=== PATIENT | male | born 2000 | race Caucasian/White ===

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

== ENCOUNTER 2018-05-29 09:50 | Emergency (ER) | payer SELFPAY ==
[~2018-05-29] VITALS: Ht 180.3 cm; Wt 88.5 kg
[~2018-05-29 09:50] MED LIST changes: +LEVE100020 PO; +LEVE500T56 PO
[2018-05-29 09:55] VITALS: BP 135/67
[2018-05-29] MEDS ORDERED: levETIRAcetam 500 MG TABLET PO ONE (10:00)
[2018-05-29] MEDS ORDERED: LEVE100020 PO (10:04)
--- NOTE | 2018-05-29 10:04 | PHYS DOC ---
Past Medical History Past Medical History: Seizure, Other Additional Past Medical Histor: EPILEPSY Past Surgical History: Other Additional Past Surgical Histo: EYE SURGERY Alcohol Use: Rarely Drug Use: None Adult General Chief Complaint Chief Complaint: MEDICATION REFILL HPI HPI Patient is a 18-year-old male who presents to the emergency department for evaluation. He states he has a history of epilepsy, and ran out of his Keppra, which he had been taking 1500 mg twice daily. He states that he had been seeing Dr. Ward, but she is not able to see him anymore until he gets insurance, and he states his insurance is currently pending. He has no complaints at this time. He denies any headache, vision changes, numbness, weakness. He has not had a recent seizure. He has been out of his medication for about a week. He has no other complaints. There are no alleviating or exacerbating factors to his condition. Review of Systems Review of Systems Constitutional: Denies fever or chills [] Eyes: Denies change in visual acuity, redness, or eye pain [] HENT: Denies nasal congestion or sore throat [] Respiratory: Denies cough or shortness of breath [] Cardiovascular: The patient denies any shortness of breath, chest pain, palpitations, or orthopnea [] GI: Denies abdominal pain, nausea, vomiting, bloody stools or diarrhea [] Neurologic: Denies headache, focal weakness or sensory changes [] Endocrine: Denies polyuria or polydipsia [] Allergies Allergies Allergies Coded Allergies Type Severity Reaction Last Updated Verified No Known Drug Allergies 09/12/13 No Physical Exam Physical Exam PHYSICAL EXAM: CONSTITUTIONAL: Well developed, well nourished HEAD: normocephalic, atraumatic EENT: PERRL, EOMI. Conjunctivae normal color, sclerae non-icteric; moist mucous membranes. NECK: Supple, non-tender; no meningismus. LUNGS: Lungs CTA, breathing even and unlabored. Normal air movement. HEART: Regular rate and rhythm, no murmur CHEST: No deformity; non-tender ABDOMEN: The abdomen is soft, and non-tender, no masses or bruits. EXTREM: Normal ROM; no deformity, no calf tenderness. Normal pulses palpable in all extremities. There is no pedal edema. SKIN: No rash; no diaphoresis NEURO: Alert; normal speech and cognition; CN's grossly intact; strength grossly intact without focal deficit. BACK: No CVA TTP. EKG EKG [] Radiology/Procedures Radiology/Procedures [] Course & Med Decision Making Course & Med Decision Making I discussed the importance of not running out of the patient's seizure medication before he seeks a refill, the importance of close follow-up, and return precautions. Dragon Disclaimer Dragon Disclaimer This electronic medical record was generated, in whole or in part, using a voice recognition dictation system. Departure Departure Impression: Primary Impression: Epilepsy Disposition: 01 HOME, SELF-CARE Condition: STABLE Referrals: MARTELL WARD MD Patient Instructions: Epilepsy Scripts Levetiracetam (KEPPRA) 1,000 Mg Tablet 1.5 TAB PO BID, #90 TAB 1 Refill Prov: BRIDGER ATKINS MD 05/29/18 BRIDGER ATKINS MD May 29, 2018 10:04
== END 2018-05-29 10:23 | disposition home or self-care (01) ==
LOC: ER 09:50
DX: G40.909 Epilepsy, unspecified, not intractable, without status epilepticus (principal)
CPT/HCPCS: 99283

== ENCOUNTER 2018-09-13 10:32 | Emergency (ER) | payer SELFPAY ==
[~2018-09-13] VITALS: Ht 180.3 cm; Wt 84.5 kg
[2018-09-13 11:04] VITALS: BP 148/62
[2018-09-13] MEDS ORDERED: LEVE100020 PO (11:13)
--- NOTE | 2018-09-13 11:13 | PHYS DOC ---
Past Medical History Past Medical History: Seizure, Other Additional Past Medical Histor: EPILEPSY Past Surgical History: Other Additional Past Surgical Histo: EYE SURGERY Alcohol Use: Rarely Drug Use: None Adult General Chief Complaint Chief Complaint: MEDICATION REFILL HPI HPI Patient is a 18 year old male with history of seizures who presents today requesting a refill for his Keppra. He ran out today. He is not able to see the neurologist because he does not have insurance and his neurologist wanted $500 upfront to be seen. He states he is not able to qualify for any Medicaid or Medicare either. Review of Systems Review of Systems Constitutional: Denies fever or chills [] Eyes: Denies change in visual acuity, redness, or eye pain [] HENT: Denies nasal congestion or sore throat [] Respiratory: Denies cough or shortness of breath [] Cardiovascular: No additional information not addressed in HPI [] GI: Denies abdominal pain, nausea, vomiting, bloody stools or diarrhea [] : Denies dysuria or hematuria [] Musculoskeletal: Denies back pain or joint pain [] Integument: Denies rash or skin lesions [] Neurologic: Visit for medication refill. Denies headache, focal weakness or sensory changes [] All other systems were reviewed and found to be within normal limits, except as documented in this note. Allergies Allergies Allergies Coded Allergies Type Severity Reaction Last Updated Verified No Known Drug Allergies 05/29/18 No Physical Exam Physical Exam Constitutional: Well developed, well nourished, no acute distress, non-toxic appearance. [] HENT: Normocephalic, atraumatic, bilateral external ears normal, oropharynx moist, no oral exudates, nose normal. [] Eyes: PERRLA, EOMI, conjunctiva normal, no discharge. [] Neck: Normal range of motion, no tenderness, supple, no stridor. [] Cardiovascular:Heart rate regular rhythm, no murmur [] Lungs & Thorax: Bilateral breath sounds clear to auscultation [] Abdomen: Bowel sounds normal, soft, no tenderness, no masses, no pulsatile masses. [] Skin: Warm, dry, no erythema, no rash. [] Back: No tenderness, no CVA tenderness. [] Extremities: No tenderness, no cyanosis, no clubbing, ROM intact, no edema. [] Neurologic: Alert and oriented X 3, normal motor function, normal sensory function, no focal deficits noted. Cranial nerves II through XII intact. Psychologic: Affect normal, judgement normal, mood normal. [] EKG EKG [] Radiology/Procedures Radiology/Procedures [] Course & Med Decision Making Course & Med Decision Making Pertinent Labs and Imaging studies reviewed. (See chart for details) This is a 18-year-old male patient presenting to the ED today requesting a refill for Keppra for his seizures. He has no insurance and not able to follow- up with the neurologist, see history of present illness. Refill was given to patient. Patient has not other complaints. Dragon Disclaimer Dragon Disclaimer This electronic medical record was generated, in whole or in part, using a voice recognition dictation system. Departure Departure Impression: Primary Impression: Medication refill Disposition: 01 HOME, SELF-CARE Condition: STABLE Referrals: NO PCP (PCP) MARTELL MIRELES MD follow up in 2 week Patient Instructions: Medication Refill, Emergency Department, Seizure, Adult Additional Instructions: We refilled your prescription for Keppra. Follow-up with your own doctor. Scripts Levetiracetam (KEPPRA) 1,000 Mg Tablet 1.5 TAB PO BID, #270 TAB 1 Refill Prov: OSMAN MORALES APRN 09/13/18 OSMAN MORALES APRN Sep 13, 2018 11:13
== END 2018-09-13 11:20 | disposition home or self-care (01) ==
LOC: ER 10:32
DX: G40.909 Epilepsy, unspecified, not intractable, without status epilepticus (principal); Z76.0 Encounter for issue of repeat prescription
CPT/HCPCS: 99283

== ENCOUNTER 2018-10-20 11:09 | Emergency (ER) | payer SELFPAY ==
[~2018-10-20] VITALS: Ht 180.3 cm; Wt 81.6 kg
[2018-10-20] MEDS ORDERED: AMOXICILLIN 250 MG CAPSULE. PO ONE (11:45)
[2018-10-20] MEDS ORDERED: IV NORMAL SALINE 1000ML BAG 1,000 ML IV ONE (11:45)
[2018-10-20] MEDS: MORPHINE SULFATE 2 MG/ML VIAL. IV ONE ×2 (11:45→12:12)
[2018-10-20 12:21] LABS: BASO % 1 % (0-3); EOS # 0.2 x10^3/uL (0.0-0.7); EOS % 3 % (0-3); HEMATOCRIT 50.3 % (39.0-53.0); HEMOGLOBIN 16.7 g/dL (13.0-17.5); LYMPH # 1.9 x10^3/uL (1.0-4.8); LYMPH % 40 % (24-48); MEAN CORPUSCULAR HEMOGLOBIN 32 pg (25-35); MEAN CORPUSCULAR HGB CONC 33 g/dL (31-37); MEAN CORPUSCULAR VOLUME 97 fL (79-100); MONO # 0.4 x10^3/uL (0.0-1.1); MONO % 8 % (0-9); NEUT # 2.3 x10^3uL (1.8-7.7); NEUT % 49 % (31-73); PLATELET COUNT 155 x10^3/uL (140-400); RED BLOOD COUNT 5.22 x10^6/uL (4.30-5.70); RED CELL DISTRIBUTION WIDTH 13.1 % (11.5-14.5); WHITE BLOOD COUNT 4.7 x10^3/uL (4.0-11.0)
[2018-10-20 12:29] LABS: CALCIUM 9.1 mg/dL (8.5-10.1); CREATININE 1.1 mg/dL (0.7-1.3); GFR 85.3; POTASSIUM 3.9 mmol/L (3.5-5.1)
[2018-10-20 12:44] LABS: ALBUMIN 3.9 g/dL (3.4-5.0); ALBUMIN/GLOBULIN RATIO 1.2 (1.0-1.7); TOTAL BILIRUBIN 0.9 mg/dL (0.2-1.0); TOTAL PROTEIN 7.2 g/dL (6.4-8.2)
[2018-10-20 13:00] VITALS: BP 91/46
[2018-10-20] MEDS ORDERED: AMOX500T PO (13:16)
[2018-10-20] MEDS ORDERED: DICL50TA4 PO (13:16)
--- NOTE | 2018-10-20 13:17 | PHYS DOC ---
Past Medical History Past Medical History: CVA, Seizure, Other Additional Past Medical Histor: EPILEPSY Past Surgical History: Other Additional Past Surgical Histo: EYE SURGERY Additional Information: 0.5 PPD Alcohol Use: Occasionally Drug Use: None Adult General Chief Complaint Chief Complaint: SEIZURE [facility] HPI Patient is a 18 year old male with history of seizures on Keppra who presents to the ED today stating he believes he had a seizure this morning. Patient states he woke up and felt off balance. He states he only feels this way whenever he had a seizure. He states most of his seizures usually occur in his sleep. This was unwitnessed seizure. Patient has no post ictal symptoms. He states he does not follow-up with a neurologist because they asked him to be $500 upfront which he does not have. Patient is also complaining of left upper gum dental pain that has been going on for one week. He states he is not able to see a dentist because he does not have insurance. He rates his pain as moderate and described as throbbing. He states he has not taken anything for his pain. Denies any fever or trismus. Review of Systems Review of Systems Constitutional: Denies fever or chills [] Eyes: Denies change in visual acuity, redness, or eye pain [] HENT: Reports dental pain. Denies nasal congestion or sore throat [] Respiratory: Denies cough or shortness of breath [] Cardiovascular: No additional information not addressed in HPI [] GI: Denies abdominal pain, nausea, vomiting, bloody stools or diarrhea [] : Denies dysuria or hematuria [] Musculoskeletal: Denies back pain or joint pain [] Integument: Denies rash or skin lesions [] Neurologic: Reports unwitnessed seizure. Denies headache, focal weakness or sensory changes [] All other systems were reviewed and found to be within normal limits, except as documented in this note. Current Medications Current Medications Current Medications Medications (Trade) Dose Ordered Sig/Callum Start Time Stop Time Status Last Admin Dose Admin Amoxicillin (Amoxil) 1,000 mg 1X ONCE 10/20/18 11:45 10/20/18 11:49 DC 10/20/18 12:11 1,000 MG Morphine Sulfate (Morphine Sulfate) 2 mg 1X ONCE 10/20/18 11:45 10/20/18 11:49 DC Sodium Chloride 1,000 ml @ 1,000 mls/hr 1X ONCE 10/20/18 11:45 10/20/18 12:44 DC 10/20/18 12:11 1,000 MLS/HR Allergies Allergies Allergies Coded Allergies Type Severity Reaction Last Updated Verified No Known Drug Allergies 05/29/18 No Physical Exam Physical Exam Constitutional: Well developed, well nourished, no acute distress, non-toxic appearance. [] HENT: Normocephalic, atraumatic, bilateral external ears normal, oropharynx moist, no oral exudates, nose normal. [] Approximately tooth #16 is a broken. Scattered dental caries noted. No gum erythema. No abscess. Eyes: PERRLA, EOMI, conjunctiva normal, no discharge. [] Neck: Normal range of motion, no tenderness, supple, no stridor. [] Cardiovascular:Heart rate regular rhythm, no murmur [] Lungs & Thorax: Bilateral breath sounds clear to auscultation [] Abdomen: Bowel sounds normal, soft, no tenderness, no masses, no pulsatile masses. [] Skin: Warm, dry, no erythema, no rash. [] Back: No tenderness, no CVA tenderness. [] Extremities: No tenderness, no cyanosis, no clubbing, ROM intact, no edema. [] Neurologic: Alert and oriented X 3, normal motor function, normal sensory function, no focal deficits noted. [Cranial nerves II through XII intact Psychologic: Affect normal, judgement normal, mood normal. [] Current Patient Data Vital Signs Vital Signs Date Time Temp Pulse Resp B/P (MAP) Pulse Ox O2 Delivery O2 Flow Rate FiO2 10/20/18 11:21 98.9 99 20 114/58 (76) 96 Room Air 98.9 Lab Values Laboratory Tests Test 10/20/18 12:13 White Blood Count 4.7 x10^3/uL (4.0-11.0) Red Blood Count 5.22 x10^6/uL (4.30-5.70) Hemoglobin 16.7 g/dL (13.0-17.5) Hematocrit 50.3 % (39.0-53.0) Mean Corpuscular Volume 97 fL (79-100) Mean Corpuscular Hemoglobin 32 pg (25-35) Mean Corpuscular Hemoglobin Concent 33 g/dL (31-37) Red Cell Distribution Width 13.1 % (11.5-14.5) Platelet Count 155 x10^3/uL (140-400) Neutrophils (%) (Auto) 49 % (31-73) Lymphocytes (%) (Auto) 40 % (24-48) Monocytes (%) (Auto) 8 % (0-9) Eosinophils (%) (Auto) 3 % (0-3) Basophils (%) (Auto) 1 % (0-3) Neutrophils # (Auto) 2.3 x10^3uL (1.8-7.7) Lymphocytes # (Auto) 1.9 x10^3/uL (1.0-4.8) Monocytes # (Auto) 0.4 x10^3/uL (0.0-1.1) Eosinophils # (Auto) 0.2 x10^3/uL (0.0-0.7) Basophils # (Auto) 0.0 x10^3/uL (0.0-0.2) Sodium Level 142 mmol/L (136-145) Potassium Level 3.9 mmol/L (3.5-5.1) Chloride Level 105 mmol/L (98-107) Carbon Dioxide Level 30 mmol/L (21-32) Anion Gap 7 (6-14) Blood Urea Nitrogen 17 mg/dL (8-26) Creatinine 1.1 mg/dL (0.7-1.3) Estimated GFR (Cockcroft-Gault) 85.3 BUN/Creatinine Ratio 15 (6-20) Glucose Level 106 mg/dL (70-99) H Lactic Acid Level 0.6 mmol/L (0.4-2.0) Calcium Level 9.1 mg/dL (8.5-10.1) Total Bilirubin 0.9 mg/dL (0.2-1.0) Aspartate Amino Transferase (AST) 19 U/L (15-37) Alanine Aminotransferase (ALT) 37 U/L (16-63) Alkaline Phosphatase 86 U/L (46-116) Total Protein 7.2 g/dL (6.4-8.2) Albumin 3.9 g/dL (3.4-5.0) Albumin/Globulin Ratio 1.2 (1.0-1.7) Ethyl Alcohol Level < 10 mg/dL (0-10) Laboratory Tests 10/20/18 12:13 Laboratory Tests 10/20/18 12:13 EKG EKG [] Radiology/Procedures Radiology/Procedures [] Course & Med Decision Making Course & Med Decision Making Pertinent Labs and Imaging studies reviewed. (See chart for details) This is a 18-year-old male patient presented to the ED today stating he had a seizure this morning this was unwitnessed seizure, see history of present illness. He has history of seizures. Patient is in no distress. Labs are negative including lactic of 0.6. i doubt he had a seizure. Patient is also complaining of dental pain. He has dental caries. Was encouraged to consider following up with the dental clinic. Discharged on amoxicillin and diclofenac for pain. Encourage also follow-up with the local clinics for seizure management. He states he uses the ED for his seizure medications. Dragon Disclaimer Dragon Disclaimer This electronic medical record was generated, in whole or in part, using a voice recognition dictation system. Departure Departure Impression: Primary Impression: Seizure Additional Impressions: Dentalgia Infected dental carries Disposition: HOME, SELF-CARE Condition: STABLE Referrals: NO PCP (PCP) follow up with your dentist and doctor from the clinic list provided Patient Instructions: Dental Caries, Seizure, Adult Additional Instructions: You were evaluated in the emergency room for seizures. Continue taking your Keppra. Consider establishing care with one of the primary care doctors from the local clinics provided. Also consider following up with your dentist from the clinic list provided. Scripts Amoxicillin (AMOXICILLIN) 500 Mg Tablet 1 TAB PO BID, #20 TAB Prov: OSMAN MORALES APRN 10/20/18 Diclofenac Sodium (DICLOFENAC SODIUM) 50 Mg Tablet. 1 TAB PO BID, #20 TAB 0 Refills Prov: OSMAN MORALES APRN 10/20/18 Problem Qualifiers OSMAN MORALES APRN October 20, 2018 13:17
[2018-10-20 13:21] LABS: BARBITURATES NEG (NEG); BENZODIAZEPINES NEG (NEG); CANNABINOIDS NEG (NEG); COCAINE NEG (NEG); METHADONE NEG (NEG); OPIATES NEG (NEG); PHENCYCLIDINE NEG (NEG)
[2018-10-20 13:22] LABS: BILIRUBIN,URINE NEGATIVE (NEG); CLARITY,URINE CLEAR; COLOR,URINE YELLOW; NITRITE,URINE NEGATIVE (NEG); PH,URINE 6.5; PROTEIN,URINE NEGATIVE (NEG-TRACE)
[2018-10-20 13:26] LABS: AMPHETAMINE/METHAMPHETAMINE NEG (NEG)
[2018-10-20 13:27] LABS: BACTERIA,URINE 0 /HPF (0-FEW); RBC,URINE 0 /HPF (0-2); SQUAMOUS EPITHELIAL CELL,UR OCC /LPF; WBC,URINE 0 /HPF (0-4)
== END 2018-10-20 13:31 | disposition home or self-care (01) ==
LOC: ER 11:09
DX: R56.9 Unspecified convulsions (principal); K02.9 Dental caries, unspecified; F17.200 Nicotine dependence, unspecified, uncomplicated; Z86.73 Personal history of transient ischemic attack (TIA), and cerebral infarction without residual deficits
CPT/HCPCS: 36415; 80053; 80177; 80307; 81001; 83605; 85025; 99284; G0480; J7030; J2270

== ENCOUNTER 2018-11-14 11:55 | Emergency (ER) | payer SELFPAY ==
[~2018-11-14] VITALS: Ht 175.3 cm; Wt 81.6 kg
[~2018-11-14 11:55] MED LIST changes: +AMOX500T PO; +DICL50TA4 PO
[2018-11-14 12:04] VITALS: BP 131/66
[2018-11-14 12:24] LABS: BASO % 1 % (0-3); EOS # 0.1 x10^3/uL (0.0-0.7); EOS % 3 % (0-3); HEMATOCRIT 49.5 % (39.0-53.0); HEMOGLOBIN 16.8 g/dL (13.0-17.5); LYMPH # 1.5 x10^3/uL (1.0-4.8); LYMPH % 28 % (24-48); MEAN CORPUSCULAR HEMOGLOBIN 33 pg (25-35); MEAN CORPUSCULAR HGB CONC 34 g/dL (31-37); MEAN CORPUSCULAR VOLUME 97 fL (79-100); MONO # 0.3 x10^3/uL (0.0-1.1); MONO % 5 % (0-9); NEUT # 3.6 x10^3uL (1.8-7.7); NEUT % 64 % (31-73); PLATELET COUNT 193 x10^3/uL (140-400); RED BLOOD COUNT 5.08 x10^6/uL (4.30-5.70); RED CELL DISTRIBUTION WIDTH 12.9 % (11.5-14.5); WHITE BLOOD COUNT 5.6 x10^3/uL (4.0-11.0)
[2018-11-14] MEDS ORDERED: IV NORMAL SALINE 1000ML BAG 1,000 ML IV ONE (12:30)
[2018-11-14] MEDS ORDERED: levETIRAcetam 1,000 MG in IV DEXTROSE 5% 100ML 100 ML IV ONE (12:30)
[2018-11-14 12:42] LABS: CALCIUM 9.2 mg/dL (8.5-10.1); CREATININE 1.1 mg/dL (0.7-1.3); GFR 85.3; POTASSIUM 4.3 mmol/L (3.5-5.1)
[2018-11-14 12:48] LABS: ALBUMIN 3.6 g/dL (3.4-5.0); ALBUMIN/GLOBULIN RATIO 1.1 (1.0-1.7); TOTAL BILIRUBIN 0.6 mg/dL (0.2-1.0); TOTAL PROTEIN 6.9 g/dL (6.4-8.2)
--- NOTE | 2018-11-14 13:40 | PHYS DOC ---
Past Medical History Past Medical History: CVA, Seizure, Other Additional Past Medical Histor: EPILEPSY Past Surgical History: Other Additional Past Surgical Histo: EYE SURGERY Alcohol Use: Occasionally Drug Use: None Adult General Chief Complaint Chief Complaint: SEIZURE HPI HPI Patient is a 18 year old male with history of seizure brought in by EMS because of seizure. Patient ran out of his seizure medication Keppra for the last 3 days and had 2 episodes of witnessed seizure today as a grand mal seizure with urinary incontinence without fall or head injury that last about 2-3 minutes with biting his tongue. Patient was in postictal condition and unable to give history. Review of Systems Review of Systems Unable to obtain because of postictal condition Current Medications Current Medications Current Medications Medications (Trade) Dose Ordered Sig/Callum Start Time Stop Time Status Last Admin Dose Admin Levetiracetam 1000 mg/Dextrose 110 ml @ 440 mls/hr 1X ONCE 11/14/18 12:30 11/14/18 12:44 DC 11/14/18 12:36 440 MLS/HR Sodium Chloride 1,000 ml @ 1,000 mls/hr 1X ONCE 11/14/18 12:30 11/14/18 13:53 DC 11/14/18 12:24 1,000 MLS/HR Allergies Allergies Allergies Coded Allergies Type Severity Reaction Last Updated Verified No Known Drug Allergies 05/29/18 No Physical Exam Physical Exam Constitutional: Well developed, well nourished, no acute distress, non-toxic appearance, sleeping but responding to questions. [] HENT: Normocephalic, areas of tongue bite without active bleeding Eyes: PERRLA, EOMI, conjunctiva normal, no discharge. [] Neck: Normal range of motion, no tenderness, supple, no stridor. [] Cardiovascular:Heart rate regular rhythm, no murmur [] Lungs & Thorax: Bilateral breath sounds clear to auscultation [] Abdomen: Bowel sounds normal, soft, no tenderness, no masses, no pulsatile masses. [] Skin: Warm, dry, no erythema, no rash. [] Back: No tenderness, no CVA tenderness. [] Extremities: No tenderness, no cyanosis, no clubbing, ROM intact, no edema. [] Neurologic: Alert , somnolent normal motor function, normal sensory function, no focal deficits noted. [] Psychologic: Unable to evaluate Current Patient Data Vital Signs Vital Signs Date Time Temp Pulse Resp B/P (MAP) Pulse Ox O2 Delivery O2 Flow Rate FiO2 11/14/18 12:04 98.0 84 18 131/66 (87) 99 Room Air 98.0 Lab Values Laboratory Tests Test 11/14/18 12:00 11/14/18 14:01 White Blood Count 5.6 x10^3/uL (4.0-11.0) Red Blood Count 5.08 x10^6/uL (4.30-5.70) Hemoglobin 16.8 g/dL (13.0-17.5) Hematocrit 49.5 % (39.0-53.0) Mean Corpuscular Volume 97 fL (79-100) Mean Corpuscular Hemoglobin 33 pg (25-35) Mean Corpuscular Hemoglobin Concent 34 g/dL (31-37) Red Cell Distribution Width 12.9 % (11.5-14.5) Platelet Count 193 x10^3/uL (140-400) Neutrophils (%) (Auto) 64 % (31-73) Lymphocytes (%) (Auto) 28 % (24-48) Monocytes (%) (Auto) 5 % (0-9) Eosinophils (%) (Auto) 3 % (0-3) Basophils (%) (Auto) 1 % (0-3) Neutrophils # (Auto) 3.6 x10^3uL (1.8-7.7) Lymphocytes # (Auto) 1.5 x10^3/uL (1.0-4.8) Monocytes # (Auto) 0.3 x10^3/uL (0.0-1.1) Eosinophils # (Auto) 0.1 x10^3/uL (0.0-0.7) Basophils # (Auto) 0.0 x10^3/uL (0.0-0.2) Sodium Level 140 mmol/L (136-145) Potassium Level 4.3 mmol/L (3.5-5.1) Chloride Level 104 mmol/L (98-107) Carbon Dioxide Level 28 mmol/L (21-32) Anion Gap 8 (6-14) Blood Urea Nitrogen 13 mg/dL (8-26) Creatinine 1.1 mg/dL (0.7-1.3) Estimated GFR (Cockcroft-Gault) 85.3 BUN/Creatinine Ratio 12 (6-20) Glucose Level 125 mg/dL (70-99) H Calcium Level 9.2 mg/dL (8.5-10.1) Total Bilirubin 0.6 mg/dL (0.2-1.0) Aspartate Amino Transferase (AST) 20 U/L (15-37) Alanine Aminotransferase (ALT) 43 U/L (16-63) Alkaline Phosphatase 101 U/L (46-116) Total Protein 6.9 g/dL (6.4-8.2) Albumin 3.6 g/dL (3.4-5.0) Albumin/Globulin Ratio 1.1 (1.0-1.7) Ethyl Alcohol Level < 10 mg/dL (0-10) Urine Opiates Screen Neg (NEG) Urine Methadone Screen Neg (NEG) Urine Barbiturates Neg (NEG) Urine Phencyclidine Screen Neg (NEG) Urine Amphetamine/Methamphetamine Neg (NEG) Urine Benzodiazepines Screen Neg (NEG) Urine Cocaine Screen Neg (NEG) Urine Cannabinoids Screen Neg (NEG) Urine Ethyl Alcohol Neg (NEG) Laboratory Tests 11/14/18 12:00 Laboratory Tests 11/14/18 12:00 EKG EKG EKG interpreted by me. EKG at 1154 showed normal sinus rhythm at rate of 72, no acute ST-T wave abnormalities. Radiology/Procedures Radiology/Procedures [] Course & Med Decision Making Course & Med Decision Making Pertinent Labs reviewed. (See chart for details) Evaluation of patient in ER showed 18-year-old male patient with history of seizure brought in by EMS because of 2 episodes of seizure because of not taking Keppra for the last 3 days because of financial problem. Patient treated with IV Keppra and IV fluid and felt better. Patient ambulated without problem. Patient supposed take 1500 mg bid but since last March he takes 1500 mg at bedtime without having any seizure until today. Patient was advised to take Keppra 1000 mg twice a day and follow up with his neurologist. Dragon Disclaimer Dragon Disclaimer This electronic medical record was generated, in whole or in part, using a voice recognition dictation system. Departure Departure Impression: Primary Impression: Seizure Additional Impressions: Noncompliance with medication regimen Tobacco abuse Disposition: HOME, SELF-CARE (@1346) Condition: IMPROVED Referrals: NO PCP (PCP) MARTELL MIRELES MD Patient Instructions: Seizure, Adult Additional Instructions: Drink plenty of liquids Follow-up with your primary care physician in 3-5 days Return to ER if not getting better Continue home seizure medication Scripts Levetiracetam (KEPPRA) 1,000 Mg Tablet 1 TAB PO BID, #60 TAB 0 Refills Prov: MAURO MCLAUGHLIN MD 11/14/18 Problem Qualifiers MAURO MCLAUGHLIN MD Nov 14, 2018 13:40
[2018-11-14] MEDS ORDERED: LEVE100020 PO (13:48)
--- NOTE | 2018-11-14 14:12 | EKG ---
[facility] [address] [place] [address] Test Date: 2018-11-14 Test Time: 11:54:34 Pat Name: LISBET LARA Department: Room: Gender: M Compliance Officer: : 2000 Requested By: MAURO MCLAUGHLIN Order Number: [id number] Reading MD: Measurements Intervals [place] Rate: 72 P: 44 SC: 158 QRS: 14 QRSD: 90 T: 47 QT: 344 QTc: 378 Interpretive Statements SINUS RHYTHM NON SPECIFIC ST-T ABNORMALITY (ELEVATION) OTHERWISE NORMAL ECG No previous ECG available for comparison
[2018-11-14 14:18] LABS: AMPHETAMINE/METHAMPHETAMINE NEG (NEG); BARBITURATES NEG (NEG); BENZODIAZEPINES NEG (NEG); CANNABINOIDS NEG (NEG); COCAINE NEG (NEG); METHADONE NEG (NEG); OPIATES NEG (NEG); PHENCYCLIDINE NEG (NEG)
== END 2018-11-14 14:18 | disposition home or self-care (01) ==
LOC: ER 11:55
DX: G40.409 Other generalized epilepsy and epileptic syndromes, not intractable, without status epilepticus (principal); R32 Unspecified urinary incontinence; Z91.14 Patient's other noncompliance with medication regimen; Z72.0 Tobacco use; Z86.73 Personal history of transient ischemic attack (TIA), and cerebral infarction without residual deficits
CPT/HCPCS: 36415; 80053; 80307; 85025; 93005; 96365; 99285; G0480; J1953; J7030

== ENCOUNTER 2019-09-30 10:56 | Emergency (ER) | payer SELFPAY ==
[~2019-09-30] VITALS: Ht 182.9 cm; Wt 84.0 kg
[2019-09-30] MEDS ORDERED: LEVE100020 PO (11:57)
--- NOTE | 2019-09-30 11:57 | PHYS DOC ---
Past Medical History Past Medical History: CVA, Seizure, Other Additional Past Medical Histor: EPILEPSY Past Surgical History: Other Additional Past Surgical Histo: EYE SURGERY Smoking Status: Current Every Day Smoker Alcohol Use: Occasionally Drug Use: None General Adult EDM: Chief Complaint: MEDICATION REFILL HPI: HPI: Patient is a 19-year-old male with a history of seizure disorder who is on Keppra. He took his last dose of Keppra last night and is here for medication refill. He states he is done very well on 1500 mg of Keppra daily. He states he cannot follow with a neurologist because he does not have insurance. He has had no recent surgeries. [] Review of Systems: Review of Systems: Constitutional: Denies fever or chills. [] Eyes: Denies change in visual acuity. [] HENT: Denies nasal congestion or sore throat. [] Respiratory: Denies cough or shortness of breath. [] Cardiovascular: Denies chest pain or edema. [] GI: Denies abdominal pain, nausea, vomiting, bloody stools or diarrhea. [] : Denies dysuria. [] Musculoskeletal: Denies back pain or joint pain. [] Integument: Denies rash. [] Neurologic: Denies headache, focal weakness or sensory changes. [] Endocrine: Denies polyuria or polydipsia. [] Lymphatic: Denies swollen glands. [] Psychiatric: Reports anxiety. [] Heart Score: Risk Factors: Risk Factors: DM, Current or recent (<one month) smoker, HTN, HLP, family history of CAD, obesity. Risk Scores: Score 0 - 3: 2.5% MACE over next 6 weeks - Discharge Home Score 4 - 6: 20.3% MACE over next 6 weeks - Admit for Clinical Observation Score 7 - 10: 72.7% MACE over next 6 weeks - Early Invasive Strategies Allergies: Allergies: Allergies Coded Allergies Type Severity Reaction Last Updated Verified No Known Drug Allergies 05/29/18 No Physical Exam: PE: Constitutional: Well developed, well nourished, no acute distress, non-toxic appearance. [] HENT: Normocephalic, atraumatic, bilateral external ears normal, oropharynx moist, no oral exudates, nose normal. [] Eyes: PERRLA, EOMI, conjunctiva normal, no discharge. [] Neck: Normal range of motion, no tenderness, supple, no stridor. [] Cardiovascular:Heart rate regular rhythm, no murmur [] Lungs & Thorax: Bilateral breath sounds clear to auscultation [] Abdomen: Bowel sounds normal, soft, no tenderness, no masses, no pulsatile masses. [] Skin: Warm, dry, no erythema, no rash. [] Back: No tenderness, no CVA tenderness. [] Extremities: No tenderness, no cyanosis, no clubbing, ROM intact, no edema. [] Neurologic: Alert and oriented X 3, normal motor function, normal sensory function, no focal deficits noted. [] Psychologic: Anxious l. [] EKG: EKG: [] Radiology/Procedures: Radiology/Procedures: [] Course & Med Decision Making: Course & Med Decision Making Pertinent Labs and Imaging studies reviewed. (See chart for details) [] Dragon Disclaimer: Dragon Disclaimer: This electronic medical record was generated, in whole or in part, using a voice recognition dictation system. Departure Departure Impression: Primary Impression: Medication refill Disposition: HOME, SELF-CARE Condition: STABLE Referrals: NO PCP (PCP) Patient Instructions: Seizure, Adult Scripts Levetiracetam (KEPPRA) 1,000 Mg Tablet 1.5 TAB PO BID for 90 Days, #270 TAB 0 Refills Prov: PEDRITO RIVERA DO 09/30/19 PEDRITO RIVERA DO Sep 30, 2019 11:57
[2019-09-30 11:58] VITALS: BP 123/65
== END 2019-09-30 12:07 | disposition home or self-care (01) ==
LOC: ER 10:56
DX: G40.909 Epilepsy, unspecified, not intractable, without status epilepticus (principal); F17.200 Nicotine dependence, unspecified, uncomplicated; Z98.890 Other specified postprocedural states; Z76.0 Encounter for issue of repeat prescription; Z86.73 Personal history of transient ischemic attack (TIA), and cerebral infarction without residual deficits
CPT/HCPCS: 99281; 99283

== ENCOUNTER 2019-11-02 18:56 | Emergency (ER) | payer SELFPAY | END 2019-11-02 19:04 | disposition left against medical advice (07) | LOC: ER 18:56 | DX: Z76.0 Encounter for issue of repeat prescription (principal); Z53.21 Procedure and treatment not carried out due to patient leaving prior to being seen by health care provider ==

== ENCOUNTER 2019-11-04 12:57 | Emergency (ER) | payer SELFPAY ==
[~2019-11-04] VITALS: Ht 180.3 cm; Wt 90.0 kg
[2019-11-04 13:18] VITALS: BP 154/92
[2019-11-04] MEDS ORDERED: LEVE100020 PO (13:32)
--- NOTE | 2019-11-04 13:37 | PHYS DOC ---
Past Medical History Past Medical History: CVA, Seizure, Other Additional Past Medical Histor: EPILEPSY (VOLODYMYR VENCES APRN) Past Surgical History: Other Additional Past Surgical Histo: EYE SURGERY (VOLODYMYR VENCES APRN) Smoking Status: Current Every Day Smoker Alcohol Use: Occasionally Drug Use: None (VOLODYMYR VENCES APRN) General Adult EDM: Chief Complaint: MEDICATION REFILL HPI: HPI: Patient is a 19 year old male who presents with needing a refill for his Keppra. He takes 1500 mg p.o. twice daily. He is a history of CVA and epilepsy. Patient still does not have a primary care doctor. Patient is here frequently for his medication refills. Patient is educated that he needs a primary care provider. (VOLODYMYR VENCES APRN) Review of Systems: Review of Systems: Constitutional: Denies fever or chills. Medication refill [] (VOLODYMYR VENCES APRN) Heart Score: Risk Factors: Risk Factors: DM, Current or recent (<one month) smoker, HTN, HLP, family history of CAD, obesity. Risk Scores: Score 0 - 3: 2.5% MACE over next 6 weeks - Discharge Home Score 4 - 6: 20.3% MACE over next 6 weeks - Admit for Clinical Observation Score 7 - 10: 72.7% MACE over next 6 weeks - Early Invasive Strategies (VOLODYMYR EVNCES APRN) Allergies: Allergies: Allergies Coded Allergies Type Severity Reaction Last Updated Verified No Known Drug Allergies 05/29/18 No (VOLODYMYR VENCES APRN) Physical Exam: PE: Constitutional: Well developed, well nourished, no acute distress, non-toxic appearance. [] HENT: Normocephalic, atraumatic, bilateral external ears normal, oropharynx moist, no oral exudates, nose normal. [] Eyes: PERRLA, EOMI, conjunctiva normal, no discharge. [] Neck: Normal range of motion, no tenderness, supple, no stridor. [] Cardiovascular:Heart rate regular rhythm, no murmur [] Lungs & Thorax: Bilateral breath sounds clear to auscultation [] Abdomen: Bowel sounds normal, soft, no tenderness, no masses, no pulsatile masses. [] Skin: Warm, dry, no erythema, no rash. [] Back: No tenderness, no CVA tenderness. [] Extremities: No tenderness, no cyanosis, no clubbing, ROM intact, no edema. [] Neurologic: Alert and oriented X 3, normal motor function, normal sensory function, no focal deficits noted. [] Psychologic: Affect normal, judgement normal, mood normal. Normal physical exam [] (VOLODYMYR VENCES APRN) Current Patient Data: Vital Signs: Vital Signs Date Time Temp Pulse Resp B/P (MAP) Pulse Ox O2 Delivery O2 Flow Rate FiO2 11/04/19 13:18 98.2 95 20 154/92 (112) 99 Room Air 98.2 (VOLODYMYR VENCES APRN) EKG: EKG: [] (VOLODYMYR VENCES APRN) Radiology/Procedures: Radiology/Procedures: [] (VOLODYMYR VENCES APRN) Course & Med Decision Making: Course & Med Decision Making Pertinent Labs and Imaging studies reviewed. (See chart for details) Alert and oriented. Speaks in full clear sentences. Patient has no complaints. Patient denies chest pain, seizures, shortness of breath, abdominal pain, nausea, vomiting, diarrhea, headache, dizziness, syncope, focal weakness, visual changes, numbness or tingling. Vital signs within normal limits. [] (VOLODYMYR VENCES APRN) Dragon Disclaimer: Dragon Disclaimer: This electronic medical record was generated, in whole or in part, using a voice recognition dictation system. (VOLODYMYR VENCES APRN) Departure Departure Impression: Primary Impression: Medication refill Disposition: 01 HOME, SELF-CARE Condition: STABLE Referrals: NO PCP (PCP) Patient Instructions: Medication Refill, Emergency Department Additional Instructions: Need to find a primary care physician for your health and medications. Take medications as prescribed. Scripts Levetiracetam (KEPPRA) 1,000 Mg Tablet 1.5 TAB PO BID for 30 Days, #90 TAB 0 Refills Prov: VOLODYMYR VENCES APRN 11/04/19 Attending Signature Attending Signature I have participated in the care of this patient and I have reviewed and agree with all pertinent clinical information above including history, exam, and recommendations. (MESFIN MONTGOMERY DO) VOLODYMYR VENCES APRN November 04, 2019 13:37 MESFIN MONTGOMERY DO November 04, 2019 15:30
== END 2019-11-04 13:48 | disposition home or self-care (01) ==
LOC: ER 12:57
DX: G40.909 Epilepsy, unspecified, not intractable, without status epilepticus (principal); Z86.73 Personal history of transient ischemic attack (TIA), and cerebral infarction without residual deficits; F17.200 Nicotine dependence, unspecified, uncomplicated
CPT/HCPCS: 99281; 99283

== ENCOUNTER 2020-02-17 09:39 | Emergency (ER) | payer SELFPAY ==
[~2020-02-17] VITALS: Ht 180.3 cm; Wt 86.0 kg
[2020-02-17 09:45] VITALS: BP 112/60
[2020-02-17] MEDS ORDERED: LEVE750T23 PO (10:06)
--- NOTE | 2020-02-17 10:06 | PHYS DOC ---
Past Medical History Past Medical History: CVA, Seizure, Other Additional Past Medical Histor: EPILEPSY Past Surgical History: Other Additional Past Surgical Histo: EYE SURGERY Smoking Status: Current Every Day Smoker Alcohol Use: Occasionally Drug Use: None General Adult EDM: Chief Complaint: MEDICATION REFILL HPI: HPI: Patient is a 19 year old male who presents requesting medication refill. He has been out of his keppra for 2 days. States he does not have insurance or a primary physician. Denies any complaints. Review of Systems: Review of Systems: General: Denies fever, chills, sweats, fatigue Eyes: Denies drainage, blurred vision, eye redness HENT: Denies rhinorrhea, sore throat, earache Respiratory: Denies cough, shortness of breath, wheezing Cardiac: Denies edema, palpitations, chest pain GI: Denies abdominal pain, Nausea, vomiting MSK: Denies back pain, neck pain Skin: Denies rash, jaundice Neuro: Denies headache, dizziness Psychiatric: Denies SI/HI Heart Score: Risk Factors: Risk Factors: DM, Current or recent (<one month) smoker, HTN, HLP, family history of CAD, obesity. Risk Scores: Score 0 - 3: 2.5% MACE over next 6 weeks - Discharge Home Score 4 - 6: 20.3% MACE over next 6 weeks - Admit for Clinical Observation Score 7 - 10: 72.7% MACE over next 6 weeks - Early Invasive Strategies Allergies: Allergies: Allergies Coded Allergies Type Severity Reaction Last Updated Verified No Known Drug Allergies 05/29/18 No Physical Exam: PE: General: Awake, alert, NAD. Well Nourished, well hydrated. Cooperative HEENT: Atraumatic, EOMI, PERRL, airway patent, moist oral mucosa Neck: Supple, trachea midline Respiratory: CTA bilaterally, normal effort, no wheezing/crackles CV: RRR, no murmur, cap refill <2 GI: Soft, nondistended, nontender, no masses MSK: No obvious deformities Skin: Warm, dry, intact Neuro: A&O x3, speech NL, sensory and motor grossly intact, no focal deficits Psych: Normal affect, normal mood, not suicidal or homicidal Current Patient Data: Vital Signs: Vital Signs Date Time Temp Pulse Resp B/P (MAP) Pulse Ox O2 Delivery O2 Flow Rate FiO2 02/17/20 09:45 97.6 57 16 112/60 (77) 98 Room Air 97.6 EKG: EKG: [] Radiology/Procedures: Radiology/Procedures: [] Course & Med Decision Making: Course & Med Decision Making Pertinent Labs and Imaging studies reviewed. (See chart for details) Patient presents to the emergency room requesting a medication refill. I have discussed with the patient that the emergency room is not the appropriate place to get medication refills. We discussed that there are multiple clinics in the community that due to free or low income health care. I have given him a list of these to follow-up with. I discussed with him that he needs to follow-up with a primary care doctor for any further refills for his Keppra. I have given him a prescription for Keppra 1 last time from here in the emergency room. Patient's test results and vitals while in the ED were fully reviewed and discussed with the patient. Patient is stable and at this time does not need admission to the hospital. We have discussed strict return precautions and the importance of following up with their Primary Care Physician. Patient stated understanding and was given an opportunity to ask any questions. Patient is in agreement with plan. Masoud Disclaimer: Masoud Disclaimer: This electronic medical record was generated, in whole or in part, using a voice recognition dictation system. Departure Departure Impression: Primary Impression: Medication refill Disposition: HOME, SELF-CARE Condition: STABLE Referrals: NO PCP (PCP) Patient Instructions: Liquid Medication Administration Scripts Levetiracetam (LEVETIRACETAM) 750 Mg Tab.er.24h 2 TAB PO DAILY for 30 Days, #60 TAB 1 Refill Prov: SALOMÓN MORRIS MD 02/17/20 Justicifation of Admission Dx: Justifications for Admission: Justification of Admission Dx: N/A SALOMÓN MORRIS MD Feb 17, 2020 10:06
== END 2020-02-17 10:13 | disposition home or self-care (01) ==
LOC: ER 09:39
DX: R56.9 Unspecified convulsions (principal); F17.200 Nicotine dependence, unspecified, uncomplicated; Z76.0 Encounter for issue of repeat prescription; Z86.73 Personal history of transient ischemic attack (TIA), and cerebral infarction without residual deficits; Z98.890 Other specified postprocedural states
CPT/HCPCS: 99281

== ENCOUNTER 2020-06-30 12:03 | Emergency (ER) | payer OTHER ==
[~2020-06-30] VITALS: Ht 182.9 cm; Wt 88.6 kg
[~2020-06-30 12:03] MED LIST changes: +LEVE750T23 PO
[2020-06-30 12:05] VITALS: BP 123/70
[2020-06-30] MEDS ORDERED: LEVE750T41 PO (12:29)
--- NOTE | 2020-06-30 12:30 | PHYS DOC ---
Past Medical History Past Medical History: CVA, Seizure, Other Additional Past Medical Histor: EPILEPSY Past Surgical History: Other Additional Past Surgical Histo: EYE SURGERY Smoking Status: Current Every Day Smoker Additional Information: 0.5 PPD Alcohol Use: Occasionally Drug Use: None General Adult EDM: Chief Complaint: MEDICATION REFILL HPI: HPI: Patient is a 20 year old male who presents emergency department requesting a refill for his Keppra medication. Patient states he has a seizure history since he was 13 years old, has lost his insurance and is currently trying to get back with medical insurance. Patient states he has been unable to find a primary care provider to help him with his seizure medication. Patient states he has not had a seizure in over a year. Patient has no physical complaints or physical concerns. Review of Systems: Review of Systems: 14 body systems of review of systems have been reviewed. See HPI for pertinent positives and negative responses, otherwise all other systems are negative, nonpertinent or noncontributory. Heart Score: Risk Factors: Risk Factors: DM, Current or recent (<one month) smoker, HTN, HLP, family history of CAD, obesity. Risk Scores: Score 0 - 3: 2.5% MACE over next 6 weeks - Discharge Home Score 4 - 6: 20.3% MACE over next 6 weeks - Admit for Clinical Observation Score 7 - 10: 72.7% MACE over next 6 weeks - Early Invasive Strategies Allergies: Allergies: Allergies Coded Allergies Type Severity Reaction Last Updated Verified No Known Drug Allergies 05/29/18 No Physical Exam: PE: Constitutional: Well developed, well nourished, no acute distress, non-toxic appearance. HENT: Normocephalic, atraumatic, bilateral external ears normal, oropharynx moist, no oral exudates, nose normal. Eyes: PERRLA, EOMI, conjunctiva normal, no discharge. Neck: Normal range of motion, no tenderness, supple, no stridor. Cardiovascular:Heart rate regular rhythm, no murmur Lungs & Thorax: Bilateral breath sounds clear to auscultation Abdomen: Bowel sounds normal, soft, no tenderness, no masses, no pulsatile masses. Skin: Warm, dry, no erythema, no rash. Back: No tenderness, no CVA tenderness. Extremities: No tenderness, no cyanosis, no clubbing, ROM intact, no edema. Neurologic: Alert and oriented X 3, normal motor function, normal sensory function, no focal deficits noted. Psychologic: Affect normal, judgement normal, mood normal. Current Patient Data: Vital Signs: Vital Signs Date Time Temp Pulse Resp B/P (MAP) Pulse Ox O2 Delivery O2 Flow Rate FiO2 06/30/20 12:05 97.8 70 15 123/70 (87) 98 Room Air 97.8 EKG: EKG: [] Radiology/Procedures: Radiology/Procedures: [] Course & Med Decision Making: Course & Med Decision Making Pertinent Labs and Imaging studies reviewed. (See chart for details) 20-year-old male, vital signs reviewed, presents to the emergency department for request medication refill of Keppra 1500 mg twice daily. Patient physical exam was unremarkable we will provide prescription refill. Patient gave verbal understanding of need to retain a primary care provider for further prescription refills. Dragon Disclaimer: Dragon Disclaimer: This electronic medical record was generated, in whole or in part, using a voice recognition dictation system. Departure Departure Impression: Primary Impression: Medication refill Disposition: 01 DC HOME SELF CARE/HOMELESS Condition: GOOD Referrals: NO PCP (PCP) Additional Instructions: Please take medications as prescribed, please follow-up with primary care for further prescription refills. Please return the emergency department for worsening symptoms or other concerns. EMERGENCY DEPARTMENT GENERAL DISCHARGE INSTRUCTIONS Thank you for coming to [facility] Emergency Department (ED) today and trusting us with you care. We trust that you had a positive experience in our Emergency Department. If you wish to speak to the department management, you may call the Director at [phone]. YOUR FOLLOW UP INSTRUCTIONS ARE FOLLOWS: 1. Do you have a private Doctor? If you do not have a private doctor, please ask for a resource list of physicians or clinics that may be able to assist you with follow up care. 2. The Emergency Physicain has interpreted your x-rays. The X-Ray specialist will also review them. If there is a change in the findings, you will be notified in 48 hours when at all possible. 3. A lab test or culture has been done, your results will be reviewed and you will be notified if you need a change in treatment. ADDITIONAL INSTRUCTIONS AND INFORMATION: 1. Your care today has been supervised by a physician who is specially trained in emergency care. Many problems require more than one evaluation for a complete diagnosis and treatment. We recommend that you schedule your follow up appointment as recommended to ensure complete treatment of you illness or injury. If you are unable to obtain follow up care and continue to have a problem, or if your condition worsens, we recommend that you return to the ED. 2. We are not able to safely determine your condition over the phone nor are we able to give sound medical advice over the phone. For these safety reasons, if you call for medical advice we will ask you to come to the ED for further evaluation. 3. If you have any questions regarding these discharge instructions please call the ED at [phone]. SAFETY INFORMATION: In the interest of safety, wellness, and injury prevention; we encourage you to wear your sealbelt, if you smoke; quite smoking, and we encourage family to use a protec tive helmet for bicycling and other sporting events that present an increased risk for head injury. IF YOUR SYMPTOMS WORSEN OR NEW SYMPTOMS DEVELOP, OR YOU HAVE CONCERNS ABOUT YOUR CONDITION; OR IF YOUR CONDITION WORSENS WHILE YOU ARE WAITING FOR YOUR FOLLOW UP APPOINTMENT; EITHER CONTACT YOUR PRIMARY CARE DOCTOR, THE PHYSICIAN WHOSE NAME AND NUMBER YOU WERE GIVEN, OR RETURN TO THE ED IMMEDIATELY. Scripts Levetiracetam (KEPPRA) 750 Mg Tablet 1500 MG PO BID for SEIZURE MEDICATION for 30 Days, #120 TAB 2 Refills Prov: RAJEEV TAI APRN 06/30/20 RAJEEV TAI APRN Jun 30, 2020 12:30
== END 2020-06-30 12:34 | disposition home or self-care (01) ==
LOC: ER 12:03
DX: R56.9 Unspecified convulsions (principal); F17.200 Nicotine dependence, unspecified, uncomplicated; Z86.73 Personal history of transient ischemic attack (TIA), and cerebral infarction without residual deficits; Z98.890 Other specified postprocedural states; Z76.0 Encounter for issue of repeat prescription
CPT/HCPCS: 99283

== ENCOUNTER 2021-03-02 07:37 | Emergency (ER) | payer SELFPAY ==
[~2021-03-02] VITALS: Ht 182.9 cm; Wt 85.0 kg
[~2021-03-02 07:37] MED LIST changes: +LEVE750T41 PO
[2021-03-02 08:22] VITALS: BP 123/70
[2021-03-02] MEDS ORDERED: IBUPROFEN 200 MG TABLET. PO ONE (08:30)
--- NOTE | 2021-03-02 08:42 | RAD ---
EXAM: XR RIBS MIN 3 VIEWS LT W/PA CHEST 03/02/2021 8:20 AM CLINICAL INDICATION: Anterior left lower rib pain post blunt trauma COMPARISON: None TECHNIQUE: AP and oblique views of the left ribs. PA view of the chest. FINDINGS: No rib fracture. The heart and mediastinum are normal. Lungs are well-expanded and clear. No pleural effusion or pneumothorax. IMPRESSION: Normal left rib series and chest radiograph. Electronically signed by: Kym De León MD (03/02/2021 8:40 AM) [id number]
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
== END 2021-03-02 09:15 | disposition home or self-care (01) ==
LOC: ER 07:37
DX: S20.212A Contusion of left front wall of thorax, initial encounter (principal); G40.909 Epilepsy, unspecified, not intractable, without status epilepticus; F17.200 Nicotine dependence, unspecified, uncomplicated; Z86.73 Personal history of transient ischemic attack (TIA), and cerebral infarction without residual deficits; W22.8XXA Striking against or struck by other objects, initial encounter; Y93.89 Activity, other specified; Y92.89 Other specified places as the place of occurrence of the external cause; Y99.8 Other external cause status
CPT/HCPCS: 71101; 99283

== ENCOUNTER 2021-06-27 15:03 | Emergency (ER) | payer SELFPAY ==
[~2021-06-27] VITALS: Ht 180.3 cm; Wt 86.0 kg
[2021-06-27 15:40] VITALS: BP 123/45
[2021-06-27] MEDS ORDERED: LEVE750T23 PO ×2 (15:59→16:42)
--- NOTE | 2021-06-27 16:00 | PHYS DOC ---
Past Medical History Past Medical History: CVA, Seizure, Other Additional Past Medical Histor: EPILEPSY Past Surgical History: Other Additional Past Surgical Histo: EYE SURGERY Smoking Status: Current Every Day Smoker Alcohol Use: Occasionally Drug Use: None General Adult EDM: Chief Complaint: MEDICATION REFILL HPI: HPI: Is a 21-year-old male that presents today for a medication refill. Patient states he has attempted dose establish primary care, he states he has an appointment at the end of August with a primary care clinic but he is out of his medications for his seizures. Patient is requesting medication refilL. He states he takes Keppra 1500 mg twice daily. Review of Systems: Review of Systems: Constitutional: Denies fever or chills. [] Eyes: Denies change in visual acuity. [] HENT: Denies nasal congestion or sore throat. [] Respiratory: Denies cough or shortness of breath. [] Cardiovascular: Denies chest pain or edema. [] GI: Denies abdominal pain, nausea, vomiting, bloody stools or diarrhea. [] : Denies dysuria. [] Musculoskeletal: Denies back pain or joint pain. [] Integument: Denies rash. [] Neurologic: Denies headache, focal weakness or sensory changes. [] Endocrine: Denies polyuria or polydipsia. [] Lymphatic: Denies swollen glands. [] Psychiatric: Denies depression or anxiety. [] Heart Score: C/O Chest Pain: N/A Risk Factors: Risk Factors: DM, Current or recent (<one month) smoker, HTN, HLP, family history of CAD, obesity. Risk Scores: Score 0 - 3: 2.5% MACE over next 6 weeks - Discharge Home Score 4 - 6: 20.3% MACE over next 6 weeks - Admit for Clinical Observation Score 7 - 10: 72.7% MACE over next 6 weeks - Early Invasive Strategies Allergies: Allergies: Allergies Coded Allergies Type Severity Reaction Last Updated Verified No Known Drug Allergies 05/29/18 No Physical Exam: PE: Constitutional: Well developed, well nourished, no acute distress, non-toxic ap pearance. [] HENT: Normocephalic, atraumatic, bilateral external ears normal, oropharynx moist, no oral exudates, nose normal. [] Eyes: PERRLA, EOMI, conjunctiva normal, no discharge. [] Neck: Normal range of motion, no tenderness, supple, no stridor. [] Cardiovascular:Heart rate regular rhythm, no murmur [] Lungs & Thorax: Bilateral breath sounds clear to auscultation [] Abdomen: Bowel sounds normal, soft, no tenderness, no masses, no pulsatile masses. [] Skin: Warm, dry, no erythema, no rash. [] Back: No tenderness, no CVA tenderness. [] Extremities: No tenderness, no cyanosis, no clubbing, ROM intact, no edema. [] Neurologic: Alert and oriented X 3, normal motor function, normal sensory function, no focal deficits noted. [] Psychologic: Affect normal, judgement normal, mood normal. [] Current Patient Data: Vital Signs: Vital Signs Date Time Temp Pulse Resp B/P (MAP) Pulse Ox O2 Delivery O2 Flow Rate FiO2 06/27/21 15:40 98.2 79 16 123/45 (71) 98 Room Air 98.2 EKG: EKG: [] Radiology/Procedures: Radiology/Procedures: [] Course & Med Decision Making: Course & Med Decision Making Pertinent Labs and Imaging studies reviewed. (See chart for details) Patient here with no other complaints, patient is needing a refill on his Keppra for his seizure disorder. Patient states he is establishing primary care and has an appointment at the end of August with a clinic here in [facility]. He states that his mother helps him with managing his medications. Patient will be given a refill of his medications and he is to follow-up with his primary care physician for further medication refill. Patient verbalized understanding of this and is agreeable with the plan of care. Masoud Disclaimer: Masoud Disclaimer: This electronic medical record was generated, in whole or in part, using a voice recognition dictation system. Departure Departure Impression: Primary Impression: Medication refill Disposition: HOME / SELF CARE / HOMELESS Condition: STABLE Referrals: NO PCP (PCP) Patient Instructions: Medication Refill, Emergency Department Additional Instructions: Keep your appointment with the clinic that you have at the end of August. Take your medications as prescribed. Scripts Levetiracetam (LEVETIRACETAM) 750 Mg Tab.er.24h 2 TAB PO BID for 30 Days, #120 TAB 3 Refills Prov: RULA BRENNAN CROSSING [place]MAN 06/27/21 RULA BRENNAN CROSSING FLAGMAN Jun 27, 2021 16:00
== END 2021-06-27 16:50 | disposition home or self-care (01) ==
LOC: ER 15:03
DX: G40.909 Epilepsy, unspecified, not intractable, without status epilepticus (principal); Z76.0 Encounter for issue of repeat prescription; F17.200 Nicotine dependence, unspecified, uncomplicated; Z86.73 Personal history of transient ischemic attack (TIA), and cerebral infarction without residual deficits
CPT/HCPCS: 99281

== ENCOUNTER 2021-07-06 10:21 | Emergency (ER) | payer SELFPAY ==
[~2021-07-06] VITALS: Ht 180.3 cm; Wt 88.6 kg
--- NOTE | 2021-07-06 12:06 | PHYS DOC ---
Past Medical History Past Medical History: CVA, Seizure, Other Additional Past Medical Histor: EPILEPSY Past Surgical History: Other Additional Past Surgical Histo: EYE SURGERY Smoking Status: Current Every Day Smoker Alcohol Use: Occasionally Drug Use: None General Adult EDM: Chief Complaint: SEIZURE HPI: HPI: Patient is a 21 year old male who presents with report of having had a seizure earlier today. He reports he has recurrent seizures. He initially ports that he has a seizure every few months. He reports that he is supposed to take Keppra 1000 mg orally twice per day. He reported that he had been at [facility] and had been previously on 1500 mg twice per day, but then his dose was decreased to 1000 mg twice per day, this was many months ago. He reports compliance with medication, reports rarely missing any medicines. No recently missed medications. He reports that he has not actually seen a neurologist in many years, and he frequently visits multiple ERs to obtain his refills of his Keppra. He denies any acute changes in seizure activity recently. He denies any head injury or trauma. He denies chest pain, dyspnea, palpitations, abdominal pain, nausea, vomiting, motor weakness, numbness or tingling. He denies any atypical or changed postictal states, denies any changes in duration or quality of seizures, to his knowledge. He drove here, is ambulatory on arrival. He also reports that he has 3 days left of his Keppra, but [facility] reportedly does not have the Kepp[facility], and he is wondering how he is going to obtain his medications after the next 3 days. He then contradicts himself later and reports that the [facility] was [facility] to a different [facility], but then he contradicts himself again and says that he does not know where he is going to get his prescriptions filled. He has the money to obtain his prescriptions. Ultimately, after l engthy discussion, the patient reports that he needs a work note to be excused from work today since he called in secondary to reportedly having a seizure. He reports this is a new job and he is afraid he will get into trouble for calling in some anytime so early into his new job. He continues to operate vehicles, drives, daily, despite having been told he should not drive until seizure-free for 6 months. I have explained to him that under no certain terms should he drive at all until he sees neurology and is seizure-free for 6 months. I explained that this is incredibly dangerous, it is strictly recommended that he avoid driving or operating machinery until he is seizure-free for 6 months or until cleared by neurology. He is given information to follow-up with neurology services here. He reports that his will drive him home. Review of Systems: Review of Systems: Constitutional: Denies fever or chills. [] Eyes: Denies change in visual acuity. [] HENT: Denies nasal congestion or sore throat. [] Respiratory: Denies cough or shortness of breath. [] Cardiovascular: Denies chest pain or edema. [] GI: Denies abdominal pain, nausea, vomiting : Denies urine incontinence or urinary symptoms Musculoskeletal: Denies back pain or joint pain. [] Integument: Denies rash. [] Neurologic: Denies headache, focal weakness or sensory changes. Ports recurrent seizure activity, unchanged Psychiatric: Denies acute mood changes Heart Score: C/O Chest Pain: No Risk Factors: Risk Factors: DM, Current or recent (<one month) smoker, HTN, HLP, family history of CAD, obesity. Risk Scores: Score 0 - 3: 2.5% MACE over next 6 weeks - Discharge Home Score 4 - 6: 20.3% MACE over next 6 weeks - Admit for Clinical Observation Score 7 - 10: 72.7% MACE over next 6 weeks - Early Invasive Strategies Allergies: Allergies: Allergies Coded Allergies Type Severity Reaction Last Updated Verified No Known Drug Allergies 05/29/18 No Physical Exam: PE: Constitutional: Well developed, well nourished, no acute distress, non-toxic appearance. [] HENT: Normocephalic, atraumatic, bilateral external ears normal, no otorrhea, oropharynx patent and clear, mucous members are moist, no dental trauma Eyes: PERRL, EOMI, conjunctiva normal, no discharge. Sclera are anicteric Neck: Normal range of motion, no tenderness, supple, no stridor. Trachea midline, no tenderness Cardiovascular:Heart rate regular rhythm, warm and well-perfused, +2 radial pulses, no edema, no cyanosis Lungs & Thorax: Bilateral breath sounds clear to auscultation [] Abdomen: Abdomen is soft, nondistended, nontender to palpation Skin: Warm, dry, no erythema, no rash, no jaundice. Back: No tenderness, no CVA tenderness. [] Extremities: No tenderness, no cyanosis, no clubbing, ROM intact, no edema. [] Neurologic: He is awake, alert, oriented x3, no facial asymmetry, ambulatory with a steady gait, no antalgic gait, no ataxia, grossly normal motor function, sensation grossly intact, speech is clear and fluent, he is able to briskly maneuver himself about the ED without difficulty. Psychologic: Affect is somewhat bizarre, he is relatively argumentative EKG: EKG: [] Radiology/Procedures: Radiology/Procedures: [] Course & Med Decision Making: Course & Med Decision Making The patient admits that he is only here for a work note, since he purposely called into work and missed work at his new job. I explained to him that he can have his license revoked if he continues to drive while having uncontrolled or poorly controlled seizures, especially without appropriate supervision by a neurologist. I did offer to write him a prescription for 1 month of Keppra, I provided a paper prescription that he may take to any pharmacy to have filled. I gave him the number for our neurology services here, and I recommend strongly that he contact them this week to arrange for close follow-up. There is no current indication for any invasive exams, imaging, laboratory exams or further ED work-up at this time based on current clinical presentation. He is not altered, he is awake, alert, fully ambulatory, has no specific complaints other than desiring a work note. Return precautions are given. Masoud Disclaimer: Masoud Disclaimer: This electronic medical record was generated, in whole or in part, using a voice recognition dictation system. Departure Departure Impression: Primary Impression: Recurrent seizures Disposition: HOME / SELF CARE / HOMELESS Condition: STABLE Referrals: NO PCP (PCP) BAMBI KAM MD Patient Instructions: Seizure, Adult Additional Instructions: Please take your Keppra as directed. You are being given a work excuse for 1 day only, just today. Please do not drive or operate any machinery for 6 months, or until you are seizure-free for 6 months. You need to follow-up with a neurologist, you are being given information for this. Please contact your primary care physician for follow-up. You are also being given resources for this. Return to the ER for any acute emergency condition, such as acute injury, trauma, shortness of breath, vomiting, chest pain, focal weakness, prolonged postictal state or atypical seizure, acute changes in seizure activity for you. Scripts Levetiracetam (KEPPRA) 1,000 Mg Tablet 1 TAB PO BID for 30 Days, #60 TAB 0 Refills Prov: NILES BORREGO DO 07/06/21 NILES BORREGO DO Jul 06, 2021 12:06
[2021-07-06] MEDS ORDERED: LEVE100020 PO (12:27)
[2021-07-06 12:36] VITALS: BP 132/70
== END 2021-07-06 12:43 | disposition home or self-care (01) ==
LOC: ER 10:21
DX: G40.909 Epilepsy, unspecified, not intractable, without status epilepticus (principal); Z86.73 Personal history of transient ischemic attack (TIA), and cerebral infarction without residual deficits; F17.200 Nicotine dependence, unspecified, uncomplicated
CPT/HCPCS: 99283